=== PATIENT | female | born 1995 | race Caucasian/White ===

== ENCOUNTER 2021-09-14 23:18 | Emergency (ER) | payer OTHER ==
[~2021-09-14] VITALS: Ht 172.7 cm; Wt 53.1 kg
--- NOTE | 2021-09-15 00:13 | PHYS DOC ---
General Adult EDM: Chief Complaint: ABDOMINAL PAIN HPI: HPI: 26-year-old female presents with left lower quadrant abdominal pain. She has had intermittent pain in this area for a couple of weeks. For the last 2 days, she has had more consistent pain. It is a mild to moderate cramping sensation that seems to come and go however once. Nothing seems to make it better or worse. She denies dysuria or increased urinary frequency. No change in stools. No change in vaginal discharge. She did recently think she had a vaginal yeast infection and took fluconazole. This did not help with the pain. Review of Systems: Review of Systems: Constitutional: Denies fever or chills Eyes: Denies change in visual acuity HENT: Denies nasal congestion or sore throat Respiratory: Denies cough or shortness of breath Cardiovascular: Denies chest pain or edema GI: Left lower quadrant abdominal pain. Denies nausea, vomiting, bloody stools or diarrhea : Denies dysuria Musculoskeletal: Denies back pain or joint pain Integument: Denies rash Neurologic: Denies headache, focal weakness or sensory changes Endocrine: Denies polyuria or polydipsia Lymphatic: Denies swollen glands Psychiatric: Denies depression or anxiety Current Medications: Current Meds: Current Medications Medications (Trade) Dose Ordered Sig/Mindy Start Time Stop Time Status Last Admin Dose Admin Ondansetron HCl (Zofran) 4 mg 1X ONCE 09/15/21 00:30 09/15/21 00:31 Sodium Chloride 1,000 ml @ 1,000 mls/hr 1X ONCE 09/15/21 00:30 09/15/21 01:29 Allergies: Allergies: Allergies Coded Allergies Type Severity Reaction Last Updated Verified sulfamethoxazole Allergy Intermediate 09/14/21 Yes trimethoprim Allergy Intermediate 09/14/21 Yes Physical Exam: PE: Constitutional: Well developed, well nourished, no acute distress, non-toxic appearance. [] HENT: Normocephalic, atraumatic, bilateral external ears normal, oropharynx moist, no oral exudates, nose normal. [] Eyes: PERRLA, EOMI, conjunctiva normal, no discharge. [] Neck: Normal range of motion, no tenderness, supple, no stridor. [] Cardiovascular: Heart rate regular rhythm, no murmur [] Lungs & Thorax: Bilateral breath sounds clear to auscultation [] Abdomen: Bowel sounds normal, soft, mild left lower quadrant tenderness, no masses, no pulsatile masses. [] Skin: Warm, dry, no erythema, no rash. [] Back: No tenderness, no CVA tenderness. [] Extremities: No tenderness, no cyanosis, no clubbing, ROM intact, no edema. [] Neurologic: Alert and oriented X 3, normal motor function, normal sensory function, no focal deficits noted. [] Psychologic: Affect normal, judgement normal, mood normal. [] Current Patient Data: Labs: Laboratory Tests Test 09/14/21 23:48 POC Urine HCG, Qualitative hcg negative (Negative) EKG: EKG: [] Radiology/Procedures: Radiology/Procedures: [] Impressions: EXAM: CT Abdomen and Pelvis with IV contrast CLINICAL HISTORY: left lower quadrant pain COMPARISON: none TECHNIQUE: Helical CT of the abdomen and pelvis was performed following the administration of intravenous contrast. Axial, coronal and sagittal reformatted images were generated. PQRS compliance statement - One or more of the following individualized dose reduction techniques were utilized for this study: 1. Automated exposure control 2. Adjustment of the mA and/or kV according to patient size 3. Use of iterative reconstruction technique FINDINGS: Lower Chest: Lung bases are clear. Abdomen and Pelvis: Focal low-attenuation along the falciform ligament likely focal fatty infiltration. Gallbladder is normal. No biliary dilatation. Pancreas, spleen and adrenal glands are unremarkable. Moderate colonic stool content. No small or large bowel dilatation. No bowel obstruction. Bladder is grossly unremarkable. No small or large bowel dilatation is seen. Moderate colonic stool content is seen. Appendix is normal. No bowel obstruction. Small volume pelvic ascites. No abdominal or pelvic lymphadenopathy. IUD is seen within the uterus. However the wings are in AP orientation. The endometrium is not well profiled and therefore it is uncertain if the wings are within the myometrium or within the endometrium. 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 Bones: No aggressive osseous lesion. IMPRESSION: 1. IUD within the uterus, with the wings in AP orientation, possibly within the myometrium. Ultrasound or MRI may provide additional details. 2. SMA results in narrowing of the left renal vein, may be seen with nutcracker syndrome. 3. Trace pelvic ascites. Electronically signed by: Josh Tam MD (09/15/2021 1:07 AM) [facility] DICTATED AND SIGNED BY: JOSH TAM MD DATE: 09/15/21 0059 CC: CRYSTAL CENTENO DO; PCP,NO ~MTH0 0 Heart Score: C/O Chest Pain: N/A Risk Factors: Risk Factors: DM, Current or recent (<one month) smoker, HTN, HLP, family history of CAD, obesity. Risk Scores: Score 0 - 3: 2.5% MACE over next 6 weeks - Discharge Home Score 4 - 6: 20.3% MACE over next 6 weeks - Admit for Clinical Observation Score 7 - 10: 72.7% MACE over next 6 weeks - Early Invasive Strategies Course & Med Decision Making: Course & Med Decision Making Pertinent Labs and Imaging studies reviewed. (See chart for details) The patient's labs are unremarkable. She is not . Her urinalysis is negative for infection. Her CT scan shows moderate stool retention, trace pelvic ascites, and an SMA the results in narrowing of the left renal vein. There is also not definitive whether or not IUD is in position. Advised the patient to do a bowel cleanout at home and then follow-up with her CARE TECHNICIAN for evaluation of her IUD. I have also advised that she follow-up with her primary care physician to discuss nutcracker syndrome and whether or not she should be evaluated by vascular surgery. She is stable for discharge at this time. Jason Disclaimer: Jason Disclaimer: This electronic medical record was generated, in whole or in part, using a voice recognition dictation system. 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
[2021-09-15 00:15] LABS: BILIRUBIN,URINE NEG (NEG); CLARITY,URINE HAZY; COLOR,URINE YELLOW; GLUCOSE,URINE NEG (NEG)
[2021-09-15 00:16] LABS: BACTERIA,URINE FEW /HPF (0-FEW); NITRITE,URINE NEG (NEG); RBC,URINE 0 /HPF (0-2); SQUAMOUS EPITHELIAL CELL,UR FEW /LPF
[2021-09-15] MEDS ORDERED: IOHEXOL 300 MG/ML 75 ML VIAL. IV ONE (00:30)
[2021-09-15] MEDS ORDERED: CONTRAST GIVEN. MC PRN (00:30)
[2021-09-15] MEDS ORDERED: IV NORMAL SALINE 1,000ML 1,000 ML IV ONE (00:30)
[2021-09-15] MEDS ORDERED: ONDANSETRON PF 4 MG/2 ML VIAL. IVP ONE (00:30)
[2021-09-15 00:40] LABS: BASO % 0 % (0-3); EOS # 0.1 x10^3/uL (0.0-0.7); EOS % 1 % (0-3); HEMATOCRIT 38.9 % (36.0-47.0); HEMOGLOBIN 13.4 g/dL (12.0-15.5); LYMPH # 2.6 x10^3/uL (1.0-4.8); LYMPH % 36 % (24-48); MEAN CORPUSCULAR HEMOGLOBIN 32 pg (25-35); MEAN CORPUSCULAR HGB CONC 34 g/dL (31-37); MEAN CORPUSCULAR VOLUME 94 fL (79-100); MONO # 0.7 x10^3/uL (0.0-1.1); MONO % 9 % (0-9); NEUT % 54 % (31-73); PLATELET COUNT 228 x10^3/uL (140-400); RED BLOOD COUNT 4.15 x10^6/uL (3.50-5.40); RED CELL DISTRIBUTION WIDTH 12.3 % (11.5-14.5); WHITE BLOOD COUNT 7.4 x10^3/uL (4.0-11.0)
[2021-09-15 00:54] LABS: CALCIUM 9.1 mg/dL (8.5-10.1); CREATININE 0.9 mg/dL (0.6-1.0); GFR 76.9
[2021-09-15 01:02] LABS: ALBUMIN 4.4 g/dL (3.4-5.0); ALBUMIN/GLOBULIN RATIO 1.4 (1.0-1.7); TOTAL BILIRUBIN 0.9 mg/dL (0.2-1.0); TOTAL PROTEIN 7.6 g/dL (6.4-8.2)
--- NOTE | 2021-09-15 01:10 | RAD ---
EXAM: CT Abdomen and Pelvis with IV contrast CLINICAL HISTORY: left lower quadrant pain COMPARISON: none TECHNIQUE: Helical CT of the abdomen and pelvis was performed following the administration of intrave nous contrast. Axial, coronal and sagittal reformatted images were generated. PQRS compliance statement - One or more of the following individualized dose reduction techniques wer e utilized for this study: 1. Automated exposure control 2. Adjustment of the mA and/or kV according to patient size 3. Use of iterative reconstruction technique FINDINGS: Lower Chest: Lung bases are clear. Abdomen and Pelvis: Focal low-attenuation along the falciform ligament likely focal fatty infiltration. Gallbladder is no rmal. No biliary dilatation. Pancreas, spleen and adrenal glands are unremarkable. Moderate colonic stool content. No small or large bowel dilatation. No bowel obstruction. Bladder is grossly unremarkable. No small or large bowel dilatation is seen. Moderate colonic stool content is seen. Appendix is kaur l. No bowel obstruction. Small volume pelvic ascites. No abdominal or pelvic lymphadenopathy. IUD is seen within the uterus. However the wings are in AP orientation. The endometrium is not well p rofiled and therefore it is uncertain if the wings are within the myometrium or within the endometriu m. 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 Bones: No aggressive osseous lesion. IMPRESSION: 1. IUD within the uterus, with the wings in AP orientation, possibly within the myometrium. Ultrasou nd or MRI may provide additional details. 2. SMA results in narrowing of the left renal vein, may be seen with nutcracker syndrome. 3. Trace pelvic ascites. Electronically signed by: Josh Tam MD (09/15/2021 1:07 AM) [facility]
[2021-09-15 01:42] VITALS: BP 137/97
[2021-09-16 18:07] LABS: CHLAMYDIA PROBE Negative (Negative)
== END 2021-09-15 01:46 | disposition home or self-care (01) ==
LOC: ER 23:18
DX: K59.00 Constipation, unspecified (principal); I87.1 Compression of vein; R10.32 Left lower quadrant pain; Z88.2 Allergy status to sulfonamides; Z88.1 Allergy status to other antibiotic agents
CPT/HCPCS: 36415; 74177; 80053; 81001; 81025; 85025; 87086; 87491; 87591; 96361; 96374; 99285; J2405; J7030; Q0111; Q9967